=== PATIENT | female | born 1990 | race Caucasian/White ===

== ENCOUNTER 2024-08-24 11:36 | Emergency (ER) | payer BC, SELFPAY ==
[2024-08-24 11:37] VITALS: BP 101/76
--- NOTE | 2024-08-24 12:48 | ED.GENMED ---
History of Present Illness
General
Chief Complaint: Abdominal Symptoms
Source: patient
Time Seen by Provider: 08/24/24 12:39
History of Present Illness
History of Present Illness:
34yo female currently 20 weeks gestation presenting for evaluation of nausea and vomiting. She has had ongoing issues with nausea and vomiting throughout her . She is currently on PRN Zofran as well as promethazine suppositories. She
recently ran out of her Zofran prescription. Her current symptoms started yesterday. She has been vomiting continuously since that time and has been unable to tolerate PO intake. She is having decreased urine output and believes she is dehydrated.
This is her 3rd ED visit this for vomiting. She denies any abdominal pain, vaginal bleeding, dysuria. No suspicious food intake. She follows with [facility].
Phy Exam
General Physical Exam
General Presentation: well appearing and no apparent distress
General age: appears stated age
General Skin: warm
General Habitus: normal
General Mental: alert
ENT Exam
ENT Exam: normocephalic
Pulmonary Exam
Pulmonary Exam: no respiratory distress
Gastrointestinal Exam
Gastrointestinal Exam: non tender, soft, non distended and other (Gravid abdomen. Soft, non-tender.)
[place] Coma Scale
Eye Opening: Spontaneous
Verbal Response: Oriented
Motor Response: Obeys Commands
GCS Total Score: 15
Skin Exam
Skin Exam: normal color and warm/dry
Psychiatric Exam
Psychiatric Exam: normal mood/affect
Course
Orders/Labs/Results
Orders:
Orders
08/24/24 12:47
0.9% Sodium Chloride 1000 ml [Nss] 1,000 ml IV BOLUS
Ondansetron Injectable [Zofran] 4 mg IV NOW STA
08/24/24 13:00
Heart Tones ONCE
08/24/24 13:12
Complete Blood Count/With Diff Urgent
Comprehensive Metabolic Panel Urgent
Magnesium Urgent
08/24/24 14:15
0.9% Sodium Chloride 1000 ml [Nss] 1,000 ml IV BOLUS
08/24/24 14:47
Diphenhydramine [Benadryl] 25 mg IV NOW STA
Metoclopramide [Reglan] 10 mg IV NOW STA
Abnormal Lab Results
08/24/24
13:12
WBC 14.3 H 10^3/uL
(4.8-10.8)
Abs Immat Gran (auto) 0.1 H 10^3/uL
(0-0.05)
Absolute Neuts (auto) 12.1 H 10^3/uL
(1.4-6.5)
Absolute Lymphs (auto) 1.0 L 10^3/uL
(1.2-3.4)
Absolute Monos (auto) 1.1 H 10^3/uL
(0.1-0.6)
Immature Gran % 0.9 H %
(0-0.5)
Neutrophils % 84.5 H %
(42.2-75.2)
Lymphocytes % 6.8 L %
(20.5-51.1)
Creatinine 0.5 L mg/dL
(0.6-1.0)
Glucose 102 H mg/dl
(70-99)
08/24/24 13:12
08/24/24 13:12
Vital Signs
Initial and Last Documented VS:
Initial Vital Signs
Temp Pulse Resp BP Pulse Ox
99.3 F 138 20 101/76 98
08/24/24 11:37 08/24/24 11:37 08/24/24 11:37 08/24/24 11:37 08/24/24 11:37
Last Documented Vital Signs
Temp Pulse Resp BP Pulse Ox
99.3 F 91 18 106/70 99
08/24/24 11:37 10/07/24 15:39 08/24/24 15:39 08/24/24 15:39 08/24/24 15:39
MDM/Problems Addressed
Differential Diagnosis Includes:
34yoF here with nausea and vomiting x 1 day. Currently 20 weeks . Feels dehydrated. No abdominal pain, vaginal bleeding, or other complaints. VSS. She is well appearing in no distress. Abdominal exam is benign. Differential
diagnosis includes but is not limited to: nausea and vomiting in , hyperemesis gravidarum, gastroenteritis, dehydration
Initial ED plan: Check CBC, CMP, and magnesium. IV Zofran and fluid bolus for symptoms.
*Critical Care Note
Total Time (30-74mins, 75-104mins- exclusive of procedures): Not Applicable
Update Note
Update Note:
Labs reveal a leukocytosis with a white count of 14. Leukocytosis likely related to state as well as reactive due to vomiting. Remainder of labs unremarkable including normal electrolytes and renal function. Patient with persistent
nausea after Zofran and Reglan/Benadryl were ordered. Nausea resolved after second round of medications. Patient received 2 L IV fluids during her ED stay. She was able to tolerate water and crackers. She is stable for discharge. Prescription
given for Reglan. She has an appointment tomorrow with her [employer]. ED return precautions discussed. She was discharged in stable condition.
ED Attending Note
-
Portions of this chart may have been created with voice recognition software.� Occasional wrong word or��sound alike� substitutions may have occurred due to the inherent limitations of voice recognition software.
Discharge Plan
Departure
Patient Disposition: Home (Routine Discharge)
Date of Disposition: 08/24/24
Time of Disposition: 15:37
Patient with high blood pressure during this ER visit?: No
Discharge Problem:
Nausea and vomiting during
Instructions: Nausea and Vomiting, Adult (DC)
Prescriptions:
New
metoclopramide HCl [Reglan] 10 mg tablet
10 mg PO Q6H PRN (Reason: nausea and vomiting) Qty: 20 0RF
Referrals:
Pinky Krause MD [Family Provider] -
Activity Restrictions/Additional Instructions:
Take Reglan as needed for nausea. Drink plenty of fluids and hydrate.
Please follow-up with your OBGYN tomorrow as previously scheduled. Return to the ER with any worsening symptoms or inability to keep down fluids.
Interventions
Interventions:
*Risk Screen - Suicide Last Done: 08/24/24 11:40
*General Assessment Last Done: 08/24/24 11:40
*Neglect/Abuse Screening Last Done: 08/24/24 11:40
ED- Fall Risk Assessment Last Done: 08/24/24 13:27
*ED COVID-19 Vaccine History Last Done: 08/24/24 11:40
*Nursing Disposition Last Done: 08/24/24 15:42
FW-Xlzxwy-Alcpjbuqtj Assessment Last Done: 08/24/24 13:27
Discharge Date and Time
Discharge Date/Time: 08/24/24 15:43
Print Language: PALESTINIAN
[2024-08-24] MEDS: ZOFRAN 4 MG IV (13:12)
[2024-08-24] MEDS: NSS 1000 IV ×2 (13:12→14:15)
[2024-08-24 13:26] LABS: % Basophils 0.4 % (0-2); % Immature Granulocytes 0.9 % (0-0.5); % Lymphocytes 6.8 % (20.5-51.1); % Monocytes 7.4 % (1.7-9.3); % Neutrophils 84.5 % (42.2-75.2); Absolute Basophils 0.1 10^3/uL (0-0.2); Absolute Immature Granulocytes 0.1 10^3/uL (0-0.05); Absolute Monocytes 1.1 10^3/uL (0.1-0.6); Absolute Neutrophils 12.1 10^3/uL (1.4-6.5); Hematocrit 38.3 % (37.0-47.0); Hemoglobin 13.2 g/dL (12.0-16.0); Mean Corp Hgb Conc. 34.5 g/dL (33.0-37.0); Mean Corpuscular Hgb 30.5 pg (27.0-31.0); Mean Corpuscular Volume 88.5 fL (81.0-99.0); Mean Platelet Volume 8.8 fL (7.4-10.4); Nucleated Red Blood Cells % 0 %; Platelet Count 397 10^3/uL (130-400); Red Blood Cell Count 4.33 10^6/uL (4.20-5.40); Red Cell Dist. Width 13.2 % (11.5-14.5); White Blood Cell Count 14.3 10^3/uL (4.8-10.8)
[2024-08-24 13:53] LABS: ALT (SGPT) 14 U/L (0-35); AST (SGOT) 23 U/L (14-36); Albumin 4.4 g/dl (3.5-5.0); Alkaline Phosphatase 73 U/L (38-126); Blood Urea Nitrogen 12 mg/dl (7-17); Carbon Dioxide 22 mmol/L (22-30); Chloride 102 mmol/L (98-107); Glucose 102 mg/dl (70-99); Magnesium 2.1 mg/dl (1.6-2.3); Potassium 3.8 mmol/L (3.5-5.1); Sodium 141 mmol/L (135-145); Total Bilirubin 0.4 mg/dl (0.2-1.3); eGFR > 60.00
[2024-08-24 14:05] VITALS: BP 107/79
[2024-08-24] MEDS: BENADRYL 25 MG IV (14:56)
[2024-08-24] MEDS: REGLAN 10 MG IV (14:57)
[2024-08-24 15:39] VITALS: BP 106/70
== END 2024-08-24 15:43 | disposition home or self-care (01) ==
LOC: EMR 11:36
PROVIDERS: Physician Assistant; EMERGENCY PHYSICIAN Emergency Medicine; FAMILY PHYSICIAN Internal Medicine
DX: O21.9 Vomiting of pregnancy, unspecified (principal); Z3A.20 20 weeks gestation of pregnancy
CPT/HCPCS: 99283; 96374; 96375; 96361; 80053; 83735; 85025

== ENCOUNTER → 2024-12-24 09:49 | Outpatient (REF) | payer BC, SELFPAY | LOC: PNTC 09:49 | PROVIDERS: ATTENDING PHYSICIAN Obstetrics & Gynecology | DX: O36.5990 Maternal care for other known or suspected poor fetal growth, unspecified trimester, not applicable or unspecified (principal) | CPT/HCPCS: 59025; 76815 ==

== ENCOUNTER 2024-12-29 19:29 | Inpatient (IN) | payer BC, SELFPAY ==
[2024-12-29 19:52] VITALS: BMI 29.1
[2024-12-29 19:57] VITALS: BP 137/85
[2024-12-29] MEDS: LR 1000 IV ×2 (22:12→23:57)
[2024-12-29 22:45] LABS: % Basophils 0.3 % (0-2); % Eosinophils 2.2 % (0-6); % Lymphocytes 13.3 % (20.5-51.1); % Neutrophils 72.2 % (42.2-75.2); Absolute Eosinophils 0.3 10^3/uL (0-0.7); Absolute Immature Granulocytes 0.1 10^3/uL (0-0.05); Absolute Lymphocytes 1.6 10^3/uL (1.2-3.4); Absolute Monocytes 1.4 10^3/uL (0.1-0.6); Absolute Neutrophils 8.8 10^3/uL (1.4-6.5); Hematocrit 31.7 % (37.0-47.0); Hemoglobin 10.3 g/dL (12.0-16.0); Mean Corp Hgb Conc. 32.5 g/dL (33.0-37.0); Mean Corpuscular Hgb 25.8 pg (27.0-31.0); Mean Corpuscular Volume 79.4 fL (81.0-99.0); Mean Platelet Volume 10.1 fL (7.4-10.4); Nucleated Red Blood Cells % 0 %; Platelet Count 374 10^3/uL (130-400); Red Blood Cell Count 3.99 10^6/uL (4.20-5.40); Red Cell Dist. Width 14.4 % (11.5-14.5); White Blood Cell Count 12.3 10^3/uL (4.8-10.8)
[2024-12-29] MEDS: PITOCIN 30 UNITS/NSS 500 ML IV (23:59)
[2024-12-30] MEDS: STADOL 1 MG IV ×2 (02:40→04:54)
[2024-12-30] MEDS: FENTANYL/BUPIVACAINE 100 EPIDURAL ×2 (05:55→14:29)
[2024-12-30] MEDS: SUBLIMAZE 100 MCG EPIDURAL (05:55)
[2024-12-30] MEDS: LR 1000 IV ×2 (06:18→14:22)
[2024-12-30] MEDS: PITOCIN 30 UNITS/NSS 500 ML IV (15:50)
[2024-12-30] MEDS: TYLENOL 650 MG PO (23:41)
[2024-12-30] MEDS: MOTRIN 600 MG PO (23:42)
[2024-12-31] MEDS: TYLENOL 650 MG PO (04:07)
[2024-12-31 05:22] LABS: Hematocrit 28.2 % (37.0-47.0); Hemoglobin 9.1 g/dL (12.0-16.0)
[2024-12-31] MEDS: TYLENOL #3 1 TABLET PO ×3 (08:23→19:11)
[2025-01-01] MEDS: TYLENOL #3 1 TABLET PO ×2 (00:08→09:18)
[2025-01-01] MEDS: SENOKOT-S 1 TABLET PO (09:18)
[2025-01-01] MEDS: FEOSOL 325 MG PO (09:18)
[2025-01-01 15:52] LABS: Syphilis/T. pallidum Ab Reflex Negative (Negative)
== END 2025-01-01 12:32 | disposition home or self-care (01) | DRG 807 ==
LOC: LDRP 19:29
PROVIDERS: Obstetrics & Gynecology; ADMITTING PHYSICIAN Student in an Organized Health Care Education/Training Program
PROC: 3E033VJ Introduction of Other Hormone into Peripheral Vein, Percutaneous Approach (ICD-10-PCS; 2024-12-29)
PROC: 0UQMXZZ Repair Vulva, External Approach (ICD-10-PCS; 2024-12-30)
PROC: 6A550ZT Pheresis of Cord Blood Stem Cells, Single (ICD-10-PCS; 2024-12-30)
PROC: 10E0XZZ Delivery of Products of Conception, External Approach (ICD-10-PCS; 2024-12-30)
DX: O36.5930 Maternal care for other known or suspected poor fetal growth, third trimester, not applicable or unspecified (principal); Z37.0 Single live birth; Z3A.38 38 weeks gestation of pregnancy; O70.0 First degree perineal laceration during delivery; O90.81 Anemia of the puerperium; D64.9 Anemia, unspecified; Z88.0 Allergy status to penicillin
CPT/HCPCS: 88307; 36415; 85014; 85018; 85025; 86780; 86850; 86900; 86901

== ENCOUNTER 2025-01-14 15:30 | Observation (INO) | payer BC, SELFPAY ==
[2025-01-14 15:41] VITALS: BP 99/55; BMI 26.6
[2025-01-14] MEDS: TYLENOL 1000 MG PO (16:15)
[2025-01-14] MEDS: REGLAN 10 MG IV (16:16)
[2025-01-14] MEDS: BENADRYL 25 MG IV (16:16)
[2025-01-14 16:27] LABS: Hematocrit 35.1 % (37.0-47.0); Hemoglobin 11.1 g/dL (12.0-16.0); Mean Corp Hgb Conc. 31.6 g/dL (33.0-37.0); Mean Corpuscular Hgb 25.6 pg (27.0-31.0); Mean Corpuscular Volume 81.1 fL (81.0-99.0); Mean Platelet Volume 8.6 fL (7.4-10.4); Platelet Count 485 10^3/uL (130-400); Red Blood Cell Count 4.33 10^6/uL (4.20-5.40); Red Cell Dist. Width 16.3 % (11.5-14.5); White Blood Cell Count 6.9 10^3/uL (4.8-10.8)
[2025-01-14 16:39] LABS: ALT (SGPT) 25 U/L (0-35); AST (SGOT) 28 U/L (14-36); Albumin 4.2 g/dl (3.5-5.0); Alkaline Phosphatase 102 U/L (38-126); Blood Urea Nitrogen 20 mg/dl (7-17); Carbon Dioxide 26 mmol/L (22-30); Chloride 102 mmol/L (98-107); Estimated Creatinine Clearance 95 ml/min; Glucose 91 mg/dl (70-99); Potassium 4.4 mmol/L (3.5-5.1); Sodium 136 mmol/L (135-145); Total Bilirubin 0.5 mg/dl (0.2-1.3); Total Protein 6.5 g/dl (6.3-8.2); eGFR > 60.00
[2025-01-14] MEDS: MOTRIN 600 MG PO (17:38)
== END 2025-01-14 18:52 | disposition home or self-care (01) ==
LOC: LDRP 15:30
PROVIDERS: ADMITTING PHYSICIAN Student in an Organized Health Care Education/Training Program
DX: O99.893 Other specified diseases and conditions complicating puerperium (principal); R51.9 Headache, unspecified
CPT/HCPCS: 80053; 85027; G0378